=== PATIENT | female | born 1970 | race African-American/Black ===

== ENCOUNTER 2016-05-28 08:04 | Emergency (ER) | payer OTHER ==
[2016-05-28 09:47] LABS: URINE SOURCE CLEAN CATCH
[2016-05-28 09:49] LABS: URINE APPEARANCE CLEAR; URINE BILIRUBIN NEG (NEG); URINE BLOOD NEG (NEG); URINE COLOR YELLOW; URINE GLUCOSE NEG (NORM); URINE KETONE NEG (NEG); URINE LEUKOCYTE ESTERASE NEG (NEG); URINE NITRATE NEG (NEG); URINE PH 8.5 (5-8); URINE PROTEIN 1+ (NEG); URINE UROBILINOGEN 0.2 MG/DL (NORM)
[2016-05-28 09:58] LABS: MICRO INDICATED? YES
[2016-05-28 10:06] LABS: CULTURE INDICATED? YES; URINE BACTERIA 1+ (NEG); URINE RBC 0-2 /[HPF] (0-2); URINE SQUAMOUS EPITHELIAL CELL FEW /[HPF]; URINE WBC 0-2 /[HPF] (0-5)
== END 2016-05-28 10:27 | disposition home or self-care (01) ==
LOC: SED 08:04
PROVIDERS: Emergency Medicine
DX: K52.9 Noninfective gastroenteritis and colitis, unspecified (principal); Z90.710 Acquired absence of both cervix and uterus
CPT/HCPCS: 81003; 87086; 96374; 96375; 99284